=== PATIENT | male | born 1995 | race Caucasian/White ===

== ENCOUNTER 2019-02-22 20:02 | Emergency (ER) | payer SELFPAY ==
[~2019-02-22] VITALS: Ht 167.6 cm; Wt 68.0 kg
[2019-02-22 20:19] VITALS: BP 134/65
[2019-02-22] MEDS ORDERED: OMEP20CA10 PO (21:34)
[2019-02-22] MEDS ORDERED: BENZ100C PO (21:34)
--- NOTE | 2019-02-22 21:34 | PHYS DOC ---
Past Medical History Past Medical History: No Pertinent History (NEELIMA DILL APRN) Past Surgical History: No Surgical History (NEELIMA DILL APRN) Alcohol Use: None Drug Use: None (NEELIMA DILL APRN) Adult General Chief Complaint Chief Complaint: COUGH HPI HPI Patient is a 23 year old male that presents with cough that has been ongoing for 2 weeks. Associated symptoms include nausea intermittently. Denies being short of air, denies runny nose, congestion at this time. Denies fever. No pain but the non productive cough is persistent. Has tried DayQuil which has not worked so far. (NEELIMA DILL APRN) Review of Systems Review of Systems Constitutional: Denies fever or chills [] Eyes: Denies change in visual acuity, redness, or eye pain [] HENT: Denies nasal congestion or sore throat [] Respiratory: Reports cough but denies shortness of breath [] Cardiovascular: No additional information not addressed in HPI [] GI: Denies abdominal pain,vomiting, bloody stools or diarrhea but reports some n ausea : Denies dysuria or hematuria [] Musculoskeletal: Denies back pain or joint pain [] Integument: Denies rash or skin lesions [] Neurologic: Denies headache, focal weakness or sensory changes [] Endocrine: Denies polyuria or polydipsia [] Complete systems were reviewed and found to be within normal limits, except as documented in this note. (NEELIMA DILL APRN) Allergies Allergies Allergies Coded Allergies Type Severity Reaction Last Updated Verified No Known Drug Allergies 02/22/19 No (JANELL KC MD) Physical Exam Physical Exam Constitutional: Well developed, well nourished, no acute distress, non-toxic appearance. [] HENT: Normocephalic, atraumatic, bilateral external ears normal, oropharynx moist, erythema in back of throat, uvula is midline, no oral exudates, nose normal. [] Eyes: PERRLA, EOMI, conjunctiva normal, no discharge. [] Neck: Normal range of motion, no tenderness, supple, no stridor. [] Cardiovascular:Heart rate regular rhythm, no murmur [] Lungs & Thorax: Bilateral breath sounds clear to auscultation [] Abdomen: Bowel sounds normal, soft, no tenderness, no masses, no pulsatile masses. [] Skin: Warm, dry, no erythema, no rash. [] Back: No tenderness, no CVA tenderness. [] Extremities: No tenderness, no cyanosis, no clubbing, ROM intact, no edema. [] Neurologic: Alert and oriented X 3, normal motor function, normal sensory function, no focal deficits noted. [] Psychologic: Affect normal, judgement normal, mood normal. [] (NEELIMA DILL APRN) Current Patient Data Vital Signs Vital Signs Date Time Temp Pulse Resp B/P (MAP) Pulse Ox O2 Delivery O2 Flow Rate FiO2 02/22/19 20:19 98.2 62 16 134/65 (88) 99 Room Air 98.2 (JANELL KC MD) Lab Values Laboratory Tests Test 02/22/19 20:40 Group A Streptococcus Rapid Negative (NEGATIVE) (JANELL KC MD) EKG EKG [] (NEELIMA DILL APRN) Radiology/Procedures Radiology/Procedures [] (NEELIMA DILL APRN) Course & Med Decision Making Course & Med Decision Making Pertinent Labs and Imaging studies reviewed. (See chart for details) Cough is persistent discussed with patient the possibility of it being related to acid in the throat. Will put on omeprazole and give tessalon perles. Patient is agreeable. (NEELIMA DILL APRN) Course & Med Decision Making Staff Physician Addendum: I was working in the ER during the course of this patient's visit. I was available for consultation as needed, but I was not directly involved in the care of this patient. (JANELL KC MD) Dragon Disclaimer Dragon Disclaimer This electronic medical record was generated, in whole or in part, using a voice recognition dictation system. (NEELIMA DILL APRN) Departure Departure Impression: Primary Impression: Cough Disposition: 01 HOME, SELF-CARE Condition: STABLE Referrals: NO PCP (PCP) Patient Instructions: Cough, Adult, Diet for Gastroesophageal Reflux Disease, Adult, Diet for Gastroesophageal Reflux Disease, Child, [id number] Additional Instructions: Please follow up with your primary care doctor about this. Take the Tessalon Perles as directed. Take omeprazole as directed to see if they help symptoms. Come back to ER as needed. Scripts Omeprazole (OMEPRAZOLE) 20 Mg Capsule.dr 1 CAP PO DAILY, #30 CAP 5 Refills Prov: NEELIMA DILL APRN 02/22/19 Benzonatate (TESSALON PERLE) 100 Mg Capsule 1 CAP PO TID PRN for COUGH, #21 CAP Prov: NEELIMA DILL APRN 02/22/19 NEEILMA DILL APRN Feb 22, 2019 21:34 JANELL KC MD Feb 24, 2019 04:59
== END 2019-02-22 21:39 | disposition home or self-care (01) ==
LOC: ER 20:02
DX: R05 Cough (principal); J02.9 Acute pharyngitis, unspecified; R11.0 Nausea
CPT/HCPCS: 87070; 87880; 99283